=== PATIENT | male | born 1980 | race Two or more races ===

== ENCOUNTER 2020-08-14 20:57 | Emergency (ER) | payer MEDICAID ==
[~2020-08-14] VITALS: Ht 170.2 cm; Wt 87.1 kg
[2020-08-14] MEDS ORDERED: TETANUS-DIPTH-ACEL PERTUSSIS 0.5ML SYR Tdap IM ONE (22:45)
[2020-08-14] MEDS ORDERED: cefTRIAXone SOD 1,000 MG VL IM ONE (22:45)
[2020-08-14] MEDS ORDERED: LIDOCAINE 1% HCL (LOCAL ANESTH.) INJ 20ML MDV IJ ONE (23:15)
[2020-08-15 00:40] VITALS: BP 186/92
== END 2020-08-15 01:53 | disposition home or self-care (01) ==
LOC: ER 20:59
DX: S61.011A Laceration without foreign body of right thumb without damage to nail, initial encounter (principal); W26.8XXA Contact with other sharp object(s), not elsewhere classified, initial encounter; Y93.89 Activity, other specified; Y92.89 Other specified places as the place of occurrence of the external cause; Y99.8 Other external cause status
CPT/HCPCS: 29130; 73140; 90471; 90715; 96372; 99284; J0696; J2001

== ENCOUNTER 2025-05-18 21:27 | Inpatient (IN) | payer MEDICAID, OTHER ==
[~2025-05-18] VITALS: Ht 170.2 cm; Wt 86.3 kg
[~2025-05-18 21:27] MED LIST: AUG875T PO; CIPR-173 PO; METR-344 PO
--- NOTE | 2025-05-18 21:54 | ED.PDOC ---
History of Present Illness HPI Comments 44-year-old male who came to ER for GI bleeding. Patient does have history of hypertension and diverticulitis. Patient has not yet seen a GI specialist regarding this issue. For the past 2 days, patient has been having intermittent episodes of left lower quadrant abdominal pain and bright red rectal bleeding. Denies any nausea or vomiting. Denies any history of abdominal surgeries REVIEW OF SYSTEMS: General: No fever, no chills, or fatigue HEENT: No sore throat, no earache, no congestion, no neck pain. Cardiac: No chest pain. No palpitations. Lungs: No shortness of breath, no cough. GI: No nausea, no vomiting, no diarrhea, no constipation, (+) abdominal pain, (+) rectal bleeding : No dysuria, frequency, or urgency. No hematuria. Musculoskeletal: No joint pain , no joint swelling, no extremity edema. Skin: No rash, no itching. Neuro: No headache, no dizziness, no weakness EXAM: General: Awake, alert and oriented. No acute distress. Skin: Skin in warm, dry and intact. Appropriate color for ethnicity. HEENT: The head is normocephalic and atraumatic. Conjunctivae are clear without exudates or hemorrhage. Sclera is non-icteric. EOM are intact. No signs of nystagmus. Eyelids are normal in appearance without swelling or lesions. Oral mucosa is pink and moist Neck: The neck is supple with normal range of motion. No JVD. Cardiac: Heart rate and rhythm are normal. No murmurs, gallops, or rubs are auscultated. Respiratory: No signs of respiratory distress. Lung sounds are clear in all lobes bilaterally without rales, rhonchi, or wheezes. Abdominal: Abdomen is soft, + left lower quadrant tenderness without distention. Bowel sounds are present and normoactive in all four quadrants. Extremities: Upper and lower extremities are atraumatic in appearance without deformity or edema. Neurological: The patient is awake, alert and oriented to person, place, and time with normal speech. Speech is clear. There is no facial asymmetry. Psychiatric: Appropriate mood and affect. Good judgement and insight Chief Complaint: GI Bleed Time Seen by MD: 21:53 Reviewed Notes: Nurses Notes Allergies: Coded Allergies: NO KNOWN ALLERGIES (Unverified , 08/14/20) Home Meds Active Scripts Metronidazole (Flagyl) 500 Mg Tab, 1 TAB PO BID for 7 Days, #14 TAB Prov:TANVIR KUHN MD 04/22/24 Ciprofloxacin Hcl (Cipro) 500 Mg Tab, 500 MG PO BID for 7 Days, #14 TAB Prov:TANVIR KUHN MD 04/22/24 Amoxicillin & Pot Clavulanate (AUGMENTIN TABLET) 875 Mg Tb, 875 MG PO BID for 5 Days, #10 TAB Prov:CHRISTOPHER PATE MD 01/11/24 Mode of Arrival: Ambulatory Past Medical History PAST MEDICAL HISTORY: HTN Past Medical History (Other): Diverticulitis Surgical History: Denies all surgeries Family History Family History: Reviewed,noncontributory to illness Social History Smoker: Non-Smoker Alcohol: Denies ETOH Use Drugs: Denies Drug Use Lives In: Home Was a procedure done? Was a procedure done?: No Differential Dx Considerations may include: Anemia, GI bleed, diverticulitis, abdominal pain X-Ray, Labs, Meds, VS Vital Signs Date Time Temp Pulse Resp B/P (MAP) Pulse Ox O2 Delivery O2 Flow Rate FiO2 05/19/25 00:17 98.6 77 20 172/91 (118) 99 98.6 05/18/25 22:35 Room Air* 0 21 05/18/25 21:35 97.6 68 18 181/118 99 97.6 Lab Test 05/18/25 23:26 05/18/25 22:50 05/18/25 22:12 Range/Units Stool Occult Blood Negative Negative Stool Occult Blood Sample #3 Negative Urine Color Light-yellow Yellow Urine Clarity Clear Clear Urine pH 5.5 5.0-9.0 Urine Specific [place] 1.016 1.001-1.035 Urine Protein Negative Negative Urine Ketones Negative Negative Urine Blood Negative Negative /uL Urine Nitrite Negative Negative Urine Bilirubin Negative Negative Urine Urobilinogen Normal Negative mg/dL Urine Leukocyte Esterase Negative Negative /uL Urine RBC <1 0 - 3 /hpf Urine Microscopic WBC < 1 0-3 /HPF Urine Squamous Epithelial Cells Few <5 /hpf Urine Bacteria None seen None Seen /hpf Urine Mucus Few None Seen Urine Glucose Normal Normal mg/dL White Blood Count 7.9 4.4-10.8 10^3/uL Red Blood Count 5.05 4.5-5.90 10^6/uL Hemoglobin 15.0 13.5-17.5 g/dL Hematocrit 43.8 41.0-53.0 % Mean Corpuscular Volume 86.7 80.0-100.0 fL Mean Corpuscular Hemoglobin 29.7 28.0-32.0 pg Mean Corpuscular Hemoglobin Concent 34.3 32.0-36.0 g/dL Red Cell Distribution Width 13.0 11.8-14.3 % Platelet Count 251 140-450 10^3/uL Mean Platelet Volume 8.6 6.9-10.8 fL Neutrophils (%) (Auto) 53.9 37.0-80.0 % Lymphocytes (%) (Auto) 37.2 10.0-50.0 % Monocytes (%) (Auto) 5.3 0.0-12.0 % Eosinophils (%) (Auto) 3.0 0.0-7.0 % Basophils (%) (Auto) 0.6 0.0-2.0 % Neutrophils # (Auto) 4.2 1.6-8.6 10 ^3/uL Lymphocytes # (Auto) 2.9 0.4-5.4 10 ^3/uL Monocytes # (Auto) 0.4 0-1.3 10 ^3/uL Eosinophils # (Auto) 0.2 0-0.8 10 ^3/uL Basophils # (Auto) 0 0-0.2 10 ^3/uL Nucleated Red Blood Cells 0.1 % Sodium Level 141 136-145 mmol/L Potassium Level 4.1 3.5-5.1 mmol/L Chloride Level 104 98-107 mmol/L Carbon Dioxide Level 26 20-31 mmol/L Anion Gap 11 5-15 Blood Urea Nitrogen 13 9-23 mg/dL Creatinine 0.98 0.700-1.30 mg/dL Glomerular Filtration Rate Calc 96 >90 mL/min BUN/Creatinine Ratio 13.3 10.0-20.0 Serum Glucose 98 74-106 mg/dL Lactic Acid Level 0.8 0.4-2.0 mmol/L Calcium Level 9.3 8.7-10.4 mg/dL Total Bilirubin 0.9 0.2-1.0 mg/dL Aspartate Amino Transferase (AST) 30 13-40 U/L Alanine Aminotransferase (ALT) 57 H 7-40 U/L Alkaline Phosphatase 111 46-116 U/L Total Protein 7.8 5.7-8.2 g/dL Albumin 4.8 3.2-4.8 g/dL Current Medications Medications (Trade) Dose Ordered Sig/Grady Route Start Time Stop Time Status Last Admin Pantoprazole Sodium (Protonix) 40 mg ONCE ONCE IV 05/18/25 22:15 05/18/25 22:16 DC 05/18/25 22:34 Sodium Chloride 1,000 ml @ 1,000 mls/hr Q1H ONCE IV 05/19/25 00:15 05/19/25 01:14 DC 05/19/25 00:15 Sodium Chloride 1,000 ml @ 130 mls/hr Q7H42M ONCE IV 05/19/25 00:15 05/19/25 07:56 05/19/25 01:56 EXAM: CT CT AB PEL WITH IV CON ONLY History: Rectal bleeding COMPARISON: CT CT AB PEL WITH IV CON ONLY on DOS: 04/21/24, CT CT AB PEL WITH IV CON ONLY on DOS: 01/11/24 TECHNIQUE: Multidetector spiral CT of the abdomen and pelvis was performed from lung bases to pubic symphysis. Intravenous contrast was administered during this examination. Portal venous imaging was obtained. Axial, coronal and sagittal multiplanar reformats were performed by the technologist on a separate workstation. Radiation Dose : 1. Abdomen/Pelvis: CTDIvol 18.39mGy, DLP 1179.36 mGy*cm. CONTRAST: Type of contrast: Omnipaque 300 Contrast injected: 100 ml FINDINGS: Lung Bases: No acute or significant lung base finding. Normal heart size. No pleural or pericardial effusion. Liver: Hepatic steatosis. Gallbladder and Biliary Tree: Unremarkable Spleen: Unremarkable Pancreas: The pancreas is normal in appearance without focal lesions or abnormal enhancement. Adrenal Glands: Unremarkable Kidneys: No hydronephrosis. Bladder: Unremarkable Bowel: Focal area of short segmental wall thickening at the proximal to mid sigmoid colon. Few diverticula in this region. Equivocal surrounding inflammatory changes adjacent to one of the diverticula. Ascites: Absent Lymphadenopathy: No mesenteric, retroperitoneal or periportal lymphadenopathy. Abdominal Wall and Mesentery: Unremarkable. Vasculature: The visualized abdominal aorta is normal in size and caliber. Abdominal and pelvic vessels demonstrate normal enhancement. Pelvic Organs: Unremarkable Musculoskeletal: No aggressive focal bony lesions, acute fractures or dislocation. IMPRESSION: Focal area of colonic wall thickening at the mid to distal sigmoid colon which could be related to chronic diverticulosis +/ minus sign acute diverticulitis. Consider colonoscopy when the acute illness has subsided to exclude any underlying lesion. Radiation optimization: All CT scans at this facility use at least one of these dose optimization techniques: automated exposure control mA and/or kV adjustment per patient size (includes targeted exams where dose is matched to clinical indication) or iterative reconstruction. Time of 1ST Reevaluation: 21:50 Reevaluation 1ST: Unchanged Patient Education/Counseling: Need For Follow Up Family Education/Counseling: No Family Present SEPSIS Sepsis Screen Date sepsis recognized/suspect: May 18, 2025 Time Sepsis recognized/suspect: 2137 Recent Procedure: No On Antibiotic Therapy: No Respiratory Rate >20: No Heart Rate >90: No Temp<36 C (96.8 F) or >38.3 C: No SBP <90 or MAP <65 mmHG: No New Acute Mental Status Change: No Is the patient on CPAP, BIPAP,: No Physician Orders Ct Ab Pel With Iv Con Only (05/18/25 22:02) Notify Md If Abnormal Vs (05/19/25 00:04) Blood Pressure (05/19/25 ) Sodium Chloride 0.9% (05/19/25 00:15) Complete Blood Count (05/19/25 04:00) Comprehensive Metabolic Panel (05/19/25 04:00) * [facility] [employer] (05/19/25 02:20) Pantoprazole (Protonix) (05/19/25 10:00) Admit (05/19/25 02:20) Allergies (05/19/25 02:20) Code Status (05/19/25 02:20) Sodium Chloride Lock (Saline Lock Ns) (05/19/25 06:00) Oxygen Per Hour (05/19/25 02:20) Hydrocodone-Acet 5/325mg Tab ([place] 5/32 (05/19/25 02:30) Ondansetron Hcl (Zofran) (05/19/25 02:30) Docusate Sodium Capsule (Colace Capsule) (05/19/25 02:30) Complete Blood Count (05/20/25 04:00) Comprehensive Metabolic Panel (05/20/25 04:00) Condition: Serious (05/19/25 02:20) Acetaminophen Tablet (Tylenol Tablet) (05/19/25 02:30) Clear Liq Diet (05/19/25 Breakfast) Bedrest With Bathroom Privileg (05/19/25 02:20) Sequential Compression Device (05/19/25 ) Nitroglycerin Sublingual (Ntrostat Subli (05/19/25 02:30) Morphine Sulfate Injection (05/19/25 02:30) Stat Ekg For Chest Pain (05/19/25 02:20) Notify Md Of Changes From Base (05/19/25 02:20) Aerial Photograph Interpreter For 24 Hours (05/19/25 02:20) Emergency Dysrhythmia Protocol (05/19/25 02:20) Rhythm Strips Once Every Shift (05/19/25 02:20) Oxygen By Nasal Cannula (05/19/25 02:20) Vital Signs Date Time Temp Pulse Resp B/P (MAP) Pulse Ox O2 Delivery O2 Flow Rate FiO2 05/19/25 00:17 98.6 77 20 172/91 (118) 99 98.6 05/18/25 22:35 Room Air* 0 21 05/18/25 21:35 97.6 68 18 181/118 99 97.6 Laboratory Tests Test 05/18/25 22:12 Lactic Acid Level 0.8 mmol/L (0.4-2.0) White Blood Count 7.9 10^3/uL (4.4-10.8) Medications Medications Dose Ordered Sig/Grady Route Start Time Stop Time Status Last Admin Dose Admin Pantoprazole Sodium 40 mg ONCE ONCE IV 05/18/25 22:15 05/18/25 22:16 DC 05/18/25 22:34 Sodium Chloride 1,000 ml @ 130 mls/hr Q7H42M ONCE IV 05/19/25 00:15 05/19/25 07:56 05/19/25 01:56 Sodium Chloride 1,000 ml @ 1,000 mls/hr Q1H ONCE IV 05/19/25 00:15 05/19/25 01:14 DC 05/19/25 00:15 Departure 1 Departure Time of Disposition: 02:37 Impression: Primary Impression: Rectal bleeding Disposition: 09 ADMITTED INPATIENT Condition: Stable Comments [age] male with a history of diverticulosis presents with left lower quadrant pain, blood in his stool. Patient admitted to hospitalist service for further treatment, evaluation and monitoring. Critical Care Note Critical Care Time?: No Stability Stability form required: No Heart Score Heart Score: Heart Score Response (Comments) Value History N/A 0 EKG N/A 0 Age N/A 0 Risk Factors N/A 0 Troponin N/A 0 Total 0 I personally scribed for ANAND RM MD ([email or web address]) on 05/18/25 at 21:54. Electronically submitted by Albert Vee ([employer]). I personally scribed for ANAND RM MD ([email or web address]) on 05/19/25 at 00:40. E lectronically submitted by Albert Vee ([employer]). ANAND RM MD May 18, 2025 21:54
[2025-05-18 22:30] LABS: Hematocrit 43.8 % (41.0-53.0); Hemoglobin 15.0 g/dL (13.5-17.5); Mean Corpuscular Hemoglobin 29.7 pg (28.0-32.0); Mean Corpuscular Volume 86.7 fL (80.0-100.0); Nucleated Red Blood Cells % 0.1 %
[2025-05-18] MEDS: PANTOPRAZOLE 40 MG/10 ML VIAL INJ IV ONE (22:34)
[2025-05-18 22:38] LABS: Albumin 4.8 g/dL (3.2-4.8); Alkaline Phosphatase 111 U/L (46-116); Anion Gap 11 (5-15); BUN/Creatinine Ratio 13.3 (10.0-20.0); Blood Urea Nitrogen 13 mg/dL (9-23); Calcium 9.3 mg/dL (8.7-10.4); Carbon Dioxide 26 mmol/L (20-31); Chloride 104 mmol/L (98-107); Glucose 98 mg/dL (74-106); Potassium 4.1 mmol/L (3.5-5.1); Sodium 141 mmol/L (136-145); Total Protein 7.8 g/dL (5.7-8.2)
[2025-05-18 22:39] LABS: Bilirubin, Total 0.9 mg/dL (0.2-1.0)
[2025-05-18 22:49] LABS: Alanine Aminotransferase 57 U/L (7-40)
[2025-05-18 23:09] LABS: Urine Protein, UAD Negative (Negative)
[2025-05-18] MEDS: IOHEXOL 300 MG/ML 100ML BOTTLE IJ ONE (23:13)
--- NOTE | 2025-05-18 23:49 | DVH ---
EXAM: CT CT AB PEL WITH IV CON ONLY History: Rectal bleeding COMPARISON: CT CT AB PEL WITH IV CON ONLY on DOS: 04/21/24, CT CT AB PEL WITH IV CON ONLY on DOS: 01/11/24 TECHNIQUE: Multidetector spiral CT of the abdomen and pelvis was performed from lung bases to pubic symphysis. Intravenous contrast was administered during this examination. Portal venous imaging was obtained. Axial, coronal and sagittal multiplanar reformats were performed by the technologist on a separate workstation. Radiation Dose : 1. Abdomen/Pelvis: CTDIvol 18.39mGy, DLP 1179.36 mGy*cm. CONTRAST: Type of contrast: Omnipaque 300 Contrast injected: 100 ml FINDINGS: Lung Bases: No acute or significant lung base finding. Normal heart size. No pleural or pericardial effusion. Liver: Hepatic steatosis. Gallbladder and Biliary Tree: Unremarkable Spleen: Unremarkable Pancreas: The pancreas is normal in appearance without focal lesions or abnormal enhancement. Adrenal Glands: Unremarkable Kidneys: No hydronephrosis. Bladder: Unremarkable Bowel: Focal area of short segmental wall thickening at the proximal to mid sigmoid colon. Few diverticula in this region. Equivocal surrounding inflammatory changes adjacent to one of the diverticula. Ascites: Absent Lymphadenopathy: No mesenteric, retroperitoneal or periportal lymphadenopathy. Abdominal Wall and Mesentery: Unremarkable. Vasculature: The visualized abdominal aorta is normal in size and caliber. Abdominal and pelvic vessels demonstrate normal enhancement. Pelvic Organs: Unremarkable Musculoskeletal: No aggressive focal bony lesions, acute fractures or dislocation. IMPRESSION: Focal area of colonic wall thickening at the mid to distal sigmoid colon which could be related to chronic diverticulosis +/ minus sign acute diverticulitis. Consider colonoscopy when the acute illness has subsided to exclude any underlying lesion. Radiation optimization: All CT scans at this facility use at least one of these dose optimization techniques: automated exposure control mA and/or kV adjustment per patient size (includes targeted exams where dose is matched to clinical indication) or iterative reconstruction.
[2025-05-19] VITALS (7 sets, daily range): BP systolic 156–169; BP diastolic 101–106; PULSE 78–86; RESP 18–20; TEMP 36.7; O2SAT 82–99
[2025-05-19] MEDS: SODIUM CHLORIDE 0.9% 1,000 ML IV ONE ×2 (00:15→01:56)
--- NOTE | 2025-05-19 02:25 | DVHHP2 ---
History of Present Illness Reason for Visit: Lower GI bleed History of Present Illness The patient is a 44-year-old male with past medical history of hypertension and diverticulitis who presented to [facility] ED with complaint of GI bleeding. Patient reports that he has been experiencing blood in his stools for the past 2 days associated with intermittent episode of left lower quadrant abdominal pain, getting worse today that prompted this visit. Patient was seen and evaluated in the ED, laboratory data shows WBC 9.9, platelets 257, sodium 141, potassium 4.1, BUN 13, creatinine 0.98, GFR 96, glucose 98, calcium 9.3, AST 30, ALT 57, blood pressure 172/71 trending down to 149/94, heart rate 77, temperature 98.6 F, O2 saturation 99% on room air. Abdomen/pelvis CT revealing focal area of colonic wall thickening at the mid to distal sigmoid colon which could be related to chronic diverticulosis plus/minus signs of acute diverticulitis. Please see medication orders section in the computer. On my assessment, patient denies chest pain, no dizziness, headache, diaphoresis, sh ortness of breaths, no abdominal pain at this moment, nausea, vomiting, fever, no chills. Patient was admitted for further evaluation and medical management. Past Medical History HTN, Diverticulitis Past Surgical History Denies all surgeries Family History Reviewed, noncontributory to the management of this case. Past Social History The patient lives at home, denies smoking, alcohol or illicit drugs abuse. Review of Systems Constitutional: No: Fever, Chills, Sweats, Weakness, Malaise, Other Eyes: No: Pain, Vision change, Conjunctivae inflammation, Eyelid inflammation, Other, Redness ENT: No: Ear pain, Ear discharge, Nose pain, Nose discharge, Nose congestion, Mouth pain, Mouth swelling, Throat pain, Throat swelling, Other Respiratory: No: Cough, Dry, Shortness of breath, SOB with excertion, Wheezing, Hemoptysis, Pleuritic Pain, Sputum, Wheezing, Other Cardiovascular: No: Chest Pain, Palpitations, Orthopnea, Paroxysmal Noc. Dyspnea, Edema, Lt Headedness, Other Gastrointestinal: Melena; No: Nausea, Vomiting, Abdominal Pain, Diarrhea, Con stipation, Hematochezia, Other Genitourinary: No Dysuria, No Frequency, No Incontinence, No Hematuria, No Retention, No Other Musculoskeletal: No: other, neck pain, shoulder pain, arm pain, back pain, hand pain, leg pain, foot pain Skin: No: Rash, Lesions, Jaundice, Bruising, Other Neurological: No: Weakness, Numbness, Incoordination, Change in speech, Confusion, Seizures, Other Allergies: Coded Allergies: NO KNOWN ALLERGIES (Unverified , 08/14/20) Exam Vital Signs Vital Signs Date Time Temp Pulse Resp B/P (MAP) Pulse Ox O2 Delivery O2 Flow Rate FiO2 05/19/25 00:17 98.6 77 20 172/91 (118) 99 98.6 05/18/25 22:35 Room Air* 0 21 General Appearance: Alert, Oriented X3, Cooperative, No acute distress HEENT: Atraumatic, PERRLA, EOMI, Mucous membr. moist/pink Respiratory: Clear to auscultation, Normal air movement Cardiovascular: Regular rate, Normal S1, Normal S2, No murmurs Abdominal: Normal bowel sounds, Soft, No tenderness, No hepatospenomegaly, No masses Extremities: No clubbing, No cyanosis, No edema, Normal pulses, No tenderness/swelling Skin: No rashes, No breakdown, No significant lesion Neuro: Normal gait, Normal speech, Strength at 5/5 X4 ext, Normal tone, Sensation intact, Cranial nerves 3-12 NL, Reflexes 2+ Psych/Mental Status: Mental status NL, Mood NL Labs/Xrays Labs Test 05/18/25 23:26 05/18/25 22:50 05/18/25 22:12 Range/Units Stool Occult Blood Negative Negative Stool Occult Blood Sample #3 Negative Urine Color Light-yellow Yellow Urine Clarity Clear Clear Urine pH 5.5 5.0-9.0 Urine Specific [place] 1.016 1.001-1.035 Urine Protein Negative Negative Urine Ketones Negative Negative Urine Blood Negative Negative /uL Urine Nitrite Negative Negative Urine Bilirubin Negative Negative Urine Urobilinogen Normal Negative mg/dL Urine Leukocyte Esterase Negative Negative /uL Urine RBC <1 0 - 3 /hpf Urine Microscopic WBC < 1 0-3 /HPF Urine Squamous Epithelial Cells Few <5 /hpf Urine Bacteria None seen None Seen /hpf Urine Mucus Few None Seen Urine Glucose Normal Normal mg/dL White Blood Count 7.9 4.4-10.8 10^3/uL Red Blood Count 5.05 4.5-5.90 10^6/uL Hemoglobin 15.0 13.5-17.5 g/dL Hematocrit 43.8 41.0-53.0 % Mean Corpuscular Volume 86.7 80.0-100.0 fL Mean Corpuscular Hemoglobin 29.7 28.0-32.0 pg Mean Corpuscular Hemoglobin Concent 34.3 32.0-36.0 g/dL Red Cell Distribution Width 13.0 11.8-14.3 % Platelet Count 251 140-450 10^3/uL Mean Platelet Volume 8.6 6.9-10.8 fL Neutrophils (%) (Auto) 53.9 37.0-80.0 % Lymphocytes (%) (Auto) 37.2 10.0-50.0 % Monocytes (%) (Auto) 5.3 0.0-12.0 % Eosinophils (%) (Auto) 3.0 0.0-7.0 % Basophils (%) (Auto) 0.6 0.0-2.0 % Neutrophils # (Auto) 4.2 1.6-8.6 10 ^3/uL Lymphocytes # (Auto) 2.9 0.4-5.4 10 ^3/uL Monocytes # (Auto) 0.4 0-1.3 10 ^3/uL Eosinophils # (Auto) 0.2 0-0.8 10 ^3/uL Basophils # (Auto) 0 0-0.2 10 ^3/uL Nucleated Red Blood Cells 0.1 % Sodium Level 141 136-145 mmol/L Potassium Level 4.1 3.5-5.1 mmol/L Chloride Level 104 98-107 mmol/L Carbon Dioxide Level 26 20-31 mmol/L Anion Gap 11 5-15 Blood Urea Nitrogen 13 9-23 mg/dL Creatinine 0.98 0.700-1.30 mg/dL Glomerular Filtration Rate Calc 96 >90 mL/min BUN/Creatinine Ratio 13.3 10.0-20.0 Serum Glucose 98 74-106 mg/dL Lactic Acid Level 0.8 0.4-2.0 mmol/L Calcium Level 9.3 8.7-10.4 mg/dL Total Bilirubin 0.9 0.2-1.0 mg/dL Aspartate Amino Transferase (AST) 30 13-40 U/L Alanine Aminotransferase (ALT) 57 H 7-40 U/L Alkaline Phosphatase 111 46-116 U/L Total Protein 7.8 5.7-8.2 g/dL Albumin 4.8 3.2-4.8 g/dL PATIENT: VIET WADDELL ACCT: [id number] UNIT: [id number] : 1980 LOC: ER ROOM / BED: / AGE / SEX: 44 / M ADM STATUS: REG ER SERVICE 01 ORDERING PHYSICIAN: ANAND RM MD PROCEDURE(s): ABPLIV - CT AB PEL WITH IV CON ONLY REASON: Rectal bleeding ORDER NUMBER(s): [id number], ACCESSION NUMBER(s): [id number] EXAM: CT CT AB PEL WITH IV CON ONLY History: Rectal bleeding COMPARISON: CT CT AB PEL WITH IV CON ONLY on DOS: 04/21/24, CT CT AB PEL WITH IV CON ONLY on DOS: 01/11/24 TECHNIQUE: Multidetector spiral CT of the abdomen and pelvis was performed from lung bases to pubic symphysis. Intravenous contrast was administered during this examination. Portal venous imaging was obtained. Axial, coronal and sagittal multiplanar reformats were performed by the technologist on a separate work station. Radiation Dose: 1. Abdomen/Pelvis: CTDIvol 18.39mGy, DLP 1179.36 mGy*cm. CONTRAST: Type of contrast: Omnipaque 300 Contrast injected: 100 ml FINDINGS: Lung Bases: No acute or significant lung base finding. Normal heart size. No pleural or pericardial effusion. Liver: Hepatic steatosis. Gallbladder and Biliary Tree: Unremarkable Spleen: Unremarkable Pancreas: The pancreas is normal in appearance without focal lesions or abnormal enhancement. Adrenal Glands: Unremarkable Kidneys: No hydronephrosis. Bladder: Unremarkable Bowel: Focal area of short segmental wall thickening at the proximal to mid sigmoid colon. Few diverticula in this region. Equivocal surrounding inflammatory changes adjacent to one of the diverticula. Ascites: Absent Lymphadenopathy: No mesenteric, retroperitoneal or periportal lymphadenopathy. Abdominal Wall and Mesentery: Unremarkable. Vasculature: The visualized abdominal aorta is normal in size and caliber. Abdominal and pelvic vessels demonstrate normal enhancement. Pelvic Organs: Unremarkable Musculoskeletal: No aggressive focal bony lesions, acute fractures or dislocation. IMPRESSION: Focal area of colonic wall thickening at the mid to distal sigmoid colon which could be related to chronic diverticulosis +/minus sign acute diverticulitis. Consider colonoscopy when the acute illness has subsided to exclude any underlying lesion. SEPSIS Sepsis Screen Date sepsis recognized/suspect: May 18, 2025 Time Sepsis recognized/suspect: 2137 Recent Procedure: No On Antibiotic Therapy: No Respiratory Rate >20: No Heart Rate >90: No Temp<36 C (96.8 F) or >38.3 C: No SBP <90 or MAP <65 mmHG: No New Acute Mental Status Change: No Is the patient on CPAP, BIPAP,: No Physician Orders Ct Ab Pel With Iv Con Only (05/18/25 22:02) Notify Md If Abnormal Vs (05/19/25 00:04) Blood Pressure (05/19/25 ) Sodium Chloride 0.9% (05/19/25 00:15) Complete Blood Count (05/19/25 04:00) Comprehensive Metabolic Panel (05/19/25 04:00) * [facility] Chair (05/19/25 02:20) Pantoprazole (Protonix) (05/19/25 10:00) Admit (05/19/25 02:20) Allergies (05/19/25 02:20) Code Status (05/19/25 02:20) Sodium Chloride Lock (Saline Lock Ns) (05/19/25 06:00) Oxygen Per Hour (05/19/25 02:20) Hydrocodone-Acet 5/325mg Tab ([place] 5/32 (05/19/25 02:30) Ondansetron Hcl (Zofran) (05/19/25 02:30) Docusate Sodium Capsule (Colace Capsule) (05/19/25 02:30) Complete Blood Count (05/20/25 04:00) Comprehensive Metabolic Panel (05/20/25 04:00) Condition: Serious (05/19/25 02:20) Acetaminophen Tablet (Tylenol Tablet) (05/19/25 02:30) Clear Liq Diet (05/19/25 Breakfast) Bedrest With Bathroom Privileg (05/19/25 02:20) Vital Signs Date Time Temp Pulse Resp B/P (MAP) Pulse Ox O2 Delivery O2 Flow Rate FiO2 05/19/25 00:17 98.6 77 20 172/91 (118) 99 98.6 05/18/25 22:35 Room Air* 0 21 05/18/25 21:35 97.6 68 18 181/118 99 97.6 Laboratory Tests Test 05/18/25 22:12 Lactic Acid Level 0.8 mmol/L (0.4-2.0) White Blood Count 7.9 10^3/uL (4.4-10.8) Medications Medications Dose Ordered Sig/Grady Route Start Time Stop Time Status Last Admin Dose Admin Pantoprazole Sodium 40 mg ONCE ONCE IV 05/18/25 22:15 05/18/25 22:16 DC 05/18/25 22:34 40 MG Sodium Chloride 1,000 ml @ 130 mls/hr Q7H42M ONCE IV 05/19/25 00:15 05/19/25 07:56 05/19/25 01:56 130 MLS/HR Sodium Chloride 1,000 ml @ 1,000 mls/hr Q1H ONCE IV 05/19/25 00:15 05/19/25 01:14 DC 05/19/25 00:15 1,000 MLS/HR Assessment/Plan Assessment/Plan Lower GI bleed Hypertensive urgency Plan 1. Admit to telemetry unit 2. Breathing treatment 3. Pain control management 4. Management of fluids and electrolytes 5. Consultation for GI possible colonoscopy 6. Diagnostic tests abdomen/pelvis CT 7. DVT prophylaxis -on SCDs 8. Repeat labs CBC, CMP in a.m. 9. Continue with current medical management 10. Treatment plan discussed with patient and RN. Patient verbalized understanding. Plan discussed with: Patient, Other (RN) My Orders Orders - FLACO HUITRON DNP Procedure Category Date Status Time Complete Blood Count LAB 05/19/25 Verified 04:00 Comprehensive LAB 05/19/25 Verified Metabolic Panel 04:00 * [facility] Chair CONS 05/19/25 Verified 02:20 Pantoprazole PHA 05/19/25 Verified (Protonix) 10:00 Admit ADMIT 05/19/25 Verified 02:20 Allergies VILMA 05/19/25 Verified 02:20 Code Status CODE 05/19/25 Verified 02:20 Sodium Chloride Lock PHA 05/19/25 Verified (Saline Lock Ns) 06:00 Oxygen Per Hour RT 05/19/25 Verified 02:20 Hydrocodone-Acet PHA 05/19/25 Verified 5/325mg Tab ([place] 02:30 Ondansetron Hcl PHA 05/19/25 Verified (Zofran) 02:30 Docusate Sodium PHA 05/19/25 Verified Capsule (Colace 02:30 Complete Blood Count LAB 05/20/25 Verified 04:00 Comprehensive LAB 05/20/25 Verified Metabolic Panel 04:00 Condition: Serious VILMA 05/19/25 Verified 02:20 Acetaminophen Tablet PHA 05/19/25 Verified (Tylenol Tablet) 02:30 Clear Liq Diet DIET 05/19/25 Verified Breakfast Bedrest With Bathroom VILMA 05/19/25 Verified Privileg 02:20 Problem List: (1) Lower GI bleed (2) Hypertensive urgency Date of Service: May 19, 2025 Billing Provider: FLACO HUITRON DNP Common Visit Codes: [id number] INP/OBS CARE (HIGH) FLACO HUITRON DNP May 19, 2025 02:25
[2025-05-19] MEDS ORDERED: DOCUSATE SOD 100 MG CAP PO PRN (02:30)
[2025-05-19] MEDS ORDERED: NITROGLYCERIN 0.4 MG SL TAB SL PRN (02:30)
[2025-05-19] MEDS ORDERED: HYDROcodone-ACET 5/325MG TAB PO PRN (02:30)
[2025-05-19] MEDS ORDERED: ONDANSETRON HCL 4 MG/2 ML VIAL IV PRN (02:30)
[2025-05-19] MEDS ORDERED: ACETAMINOPHEN 325 MG TAB PO PRN (02:30)
[2025-05-19] MEDS ORDERED: MORPHINE SULFATE INJ 2 MG/ml SYRG IV PRN (02:30)
[2025-05-19] MEDS ORDERED: ENAL1TAB48 PO (04:42)
[2025-05-19] MEDS: SODIUM CHLOR 0.9% PF (SALINE LOCK) 10ML VIAL/SYR IV SCH (05:02)
[2025-05-19] MEDS: ENALAPRIL MALEATE 10 MG TAB PO SCH (05:51)
[2025-05-19 07:37] LABS: Hematocrit 43.4 % (41.0-53.0); Hemoglobin 14.7 g/dL (13.5-17.5); Mean Corpuscular Hemoglobin 29.2 pg (28.0-32.0); Mean Corpuscular Volume 86.3 fL (80.0-100.0); Nucleated Red Blood Cells % 0.1 %
[2025-05-19 07:53] LABS: Alkaline Phosphatase 100 U/L (46-116); Anion Gap 10 (5-15); BUN/Creatinine Ratio 10.1 (10.0-20.0); Blood Urea Nitrogen 9 mg/dL (9-23); Calcium 9.0 mg/dL (8.7-10.4); Carbon Dioxide 25 mmol/L (20-31); Glucose 99 mg/dL (74-106); Potassium 4.0 mmol/L (3.5-5.1); Sodium 143 mmol/L (136-145); Total Protein 7.0 g/dL (5.7-8.2)
[2025-05-19 07:54] LABS: Albumin 4.3 g/dL (3.2-4.8)
[2025-05-19 07:57] LABS: Alanine Aminotransferase 52 U/L (7-40); Bilirubin, Total 1.4 mg/dL (0.2-1.0); Chloride 108 mmol/L (98-107)
[2025-05-19 09:18] LABS: INR 1.01 (0.9-1.15); Partial Thromboplastin Time 28.1 SEC (24.5-34.5); Prothrombin Time 10.7 sec (9.3-11.8)
[2025-05-19 09:43] LABS: Magnesium 2.2 mg/dL (1.6-2.6)
[2025-05-19] MEDS: PANTOPRAZOLE 40 MG/10 ML VIAL INJ IV SCH (10:04)
[2025-05-19 10:21] LABS: Amphetamine Screen, Urine Neg (NEGATIVE); Barbiturate Scree,Urine Neg (NEGATIVE); Benzodiazephine Screen, Urine Neg (NEGATIVE); Cannabinoid Screen, Urine Neg (NEGATIVE); Cocaine Screen, Urine Neg (NEGATIVE); Opiate Scree,Urine Neg (NEGATIVE); Phencyclidine Screen, Urine Neg (NEGATIVE)
--- NOTE | 2025-05-19 10:27 | DVHPNRES ---
Progress Note Date Seen: May 19, 2025 Resident Creating Document: MOLLY FIGUEROA RESIDENT Has the PT tested + for MRSA If YES, has PT been informed?: No Medical Necessity Reason Pt with a Central, PICC or Fol: No Subjective Review of Systems The patient is a 44-year-old male with past medical history of hypertension and diverticulitis who presented to [facility] ED with complaint of GI bleeding. Patient reports that he has been experiencing blood in his stools for the past 2 days associated with intermittent episode of left lower quadrant abdominal pain, getting worse today that prompted this visit. Patient was seen and evaluated in the ED, laboratory data shows WBC 9.9, platelets 257, sodium 141, potassium 4.1, BUN 13, creatinine 0.98, GFR 96, glucose 98, calcium 9.3, AST 30, ALT 57, blood pressure 172/71 trending down to 149/94, heart rate 77, temperature 98.6 F, O2 saturation 99% on room air. Abdomen/pelvis CT revealing focal area of colonic wall thickening at the mid to distal sigmoid colon which could be related to chronic diverticulosis plus/minus signs of acute diverticulitis. Please see medication orders section in the computer. On my assessment, patient denies chest pain, no dizziness, headache, diaphoresis, shortness of breaths, no abdominal pain at this moment, nausea, vomiting, fever, no chills. Patient was admitted for further evaluation and medical management. Past Medical History HTN, Diverticulitis Past Surgical History Denies all surgeries Family History Reviewed, noncontributory to the management of this case. Past Social History The patient lives at home, denies smoking, alcohol or illicit drugs abuse. Constitutional: No: Fever, Chills, Sweats, Weakness, Malaise, Other Eyes: No: Pain, Vision change, Conjunctivae inflammation, Eyelid inflammation, Other, Redness ENT: No: Ear pain, Ear discharge, Nose pain, Nose discharge, Nose congestion, Mouth pain, Mouth swelling, Throat pain, Throat swelling, Other Respiratory: No: Cough, Dry, Shortness of breath, SOB with excertion, Wheezing, Hemoptysis, Pleuritic Pain, Sputum, Wheezing, Other Cardiovascular: No: Chest Pain, Palpitations, Orthopnea, Paroxysmal Noc. Dyspnea, Edema, Lt Headedness, Other Gastrointestinal: Melena; No: Nausea, Vomiting, Abdominal Pain, Diarrhea, Constipation, Hematochezia, Other Genitourinary: No Dysuria, No Frequency, No Incontinence, No Hematuria, No Retention, No Other Musculoskeletal: No: other, neck pain, shoulder pain, arm pain, back pain, hand pain, leg pain, foot pain Skin: No: Rash, Lesions, Jaundice, Bruising, Other Neurological: No: Weakness, Numbness, Incoordination, Change in speech, Confusion, Seizures, Other Allergies: Coded Allergies: NO KNOWN ALLERGIES (Unverified , 08/14/20) Objective vital signs Vital Sign Date Time Temp Pulse Resp B/P (MAP) Pulse Ox O2 Delivery O2 Flow Rate FiO2 05/19/25 09:09 97.9 86 20 166/101 (122) 97 97.9 05/19/25 08:00 Room Air* 0 21 Total Intake and Output 05/18/25 05/18/25 05/19/25 15:00 23:00 07:00 Intake Total 410 ml Balance 410 ml medications Current Medications Medications Dose Ordered Sig/Grady Route Start Time Stop Time Status Last Admin Dose Admin Pantoprazole Sodium 40 mg DAILY IV 05/19/25 10:00 05/19/25 10:04 40 MG Sodium Chloride 10 ml Q8HR IV 05/19/25 06:00 05/19/25 05:02 10 ML Acetaminophen/ Hydrocodone Bitart 1 tab Q4HP PRN PO 05/19/25 02:30 Ondansetron HCl 4 mg Q4HP PRN IV 05/19/25 02:30 Docusate Sodium 100 mg BIDPRN PRN PO 05/19/25 02:30 Acetaminophen 650 mg Q6HP PRN PO 05/19/25 02:30 Nitroglycerin 0.4 mg Q5MINP PRN SL 05/19/25 02:30 Morphine Sulfate 2 mg Q30M PRN IV 05/19/25 02:30 Enalapril Maleate 20 mg Q12HR PO 05/19/25 05:45 05/19/25 05:51 20 MG Examination General Appearance: Alert, Oriented X3, Cooperative, No acute distress HEENT: Atraumatic, PERRLA, EOMI, Mucous membr. moist/pink Respiratory: Clear to auscultation, Normal air movement Cardiovascular: Regular rate, Normal S1, Normal S2, No murmurs Abdominal: Normal bowel sounds, Soft, No tenderness, No hepatospenomegaly, No masses Extremities: No clubbing, No cyanosis, No edema, Normal pulses, No tenderness/swelling Skin: No rashes, No breakdown, No significant lesion Neuro: Normal gait, Normal speech, Strength at 5/5 X4 ext, Normal tone, Sensation intact, Cranial nerves 3-12 NL, Reflexes 2+ Psych/Mental Status: Mental status NL, Mood NL laboratory and microbiology Laboratory Tests 05/19/25 07:25 Test 05/19/25 07:25 Range/Units Serum Glucose 99 74-106 mg/dL Problem List/Assessment/Plan Problem List/Assessment/Plan Lower GI bleed Hypertensive urgency Plan 1. Admit to telemetry unit 2. Breathing treatment 3. Pain control management 4. Management of fluids and electrolytes 5. Consultation for GI possible colonoscopy 6. Diagnostic tests abdomen/pelvis CT 7. DVT prophylaxis -on SCDs 8. Repeat labs CBC, CMP in a.m. 9. Continue with current medical management 10. Treatment plan discussed with patient and RN. Patient verbalized understanding. Plan discussed with: Patient, Other (RN) Plan discussed with: Patient My Orders My Orders Orders - MOLLY FIGUEROA RESIDENT Procedure Category Date Status Time Discontinue Tele VILMA 05/19/25 In Process 09:57 Transfer Orders XFER 05/19/25 Transmitted 09:57 Visit Coding STANDARD RES Billing Provider: CHRISTA MCGILL MD Date of Service if different f: May 19, 2025 Common Visit Codes: [id number] INP/OBS CARE(HIGH) MOLLY FIGUEROA RESIDENT May 19, 2025 10:27
--- NOTE | 2025-05-19 12:06 | DVHINCON2 ---
GI Consult Consult Note GI consult note Date of Consultation: 05/19/2025 Chief Complaint: GI bleed Referring Physician: Kelsey HICKMAN H&P: 44-year-old male with past medical history of hypertension and diverticulitis admitted with GI bleeding. Patient admits to small amount of red blood in toilet bowl for two days, none today. Patient also complaining of left lower quadrant pain which is mild per patient. No nausea or vomiting. Denies fevers or chills. Last bowel movement was yesterday. No colonoscopy in past. Patient was hospitalized with diverticulitis about one year ago Past Medical History: HTN, diverticulitis Past Surgical History: Denies Social History: NO smoking, drinking ETOH and use of illegal drugs. Family History: Noncontributory Review of Systems: Constitutional: no fever, chill, weight loss HEENT: no eye pain, no hearing loss, no oral lesion, no scleral icterus Heart: no chest pain, no chest pressure Lung: no cough, no dyspnea with exertion Abdomen: see HPI Physical exam: General: NAD, AAOX3 Chest: lung rene clear to auscultation Heart: RRR, no murmur Abdomen: non-distended, mild LLQ tenderness to palpation, +BS Labs: Labs Test 05/19/25 09:50 05/19/25 07:25 05/18/25 23:26 05/18/25 22:50 Range/Units Urine Opiates Screen Neg NEGATIVE Urine Fentanyl Screen Neg NEGATIVE Urine Barbiturates Screen Neg NEGATIVE Urine Phencyclidine Screen Neg NEGATIVE Urine Amphetamines Screen Neg NEGATIVE Urine Benzodiazepines Screen Neg NEGATIVE Urine Cocaine Screen Neg NEGATIVE Urine Cannabinoids Screen Neg NEGATIVE White Blood Count 5.1 # 4.4-10.8 10^3/uL Red Blood Count 5.03 4.5-5.90 10^6/uL Hemoglobin 14.7 13.5-17.5 g/dL Hematocrit 43.4 41.0-53.0 % Mean Corpuscular Volume 86.3 80.0-100.0 fL Mean Corpuscular Hemoglobin 29.2 28.0-32.0 pg Mean Corpuscular Hemoglobin Concent 33.8 32.0-36.0 g/dL Red Cell Distribution Width 13.1 11.8-14.3 % Platelet Count 213 140-450 10^3/uL Mean Platelet Volume 8.3 6.9-10.8 fL Neutrophils (%) (Auto) 55.5 37.0-80.0 % Lymphocytes (%) (Auto) 35.8 10.0-50.0 % Monocytes (%) (Auto) 5.6 0.0-12.0 % Eosinophils (%) (Auto) 2.5 0.0-7.0 % Basophils (%) (Auto) 0.6 0.0-2.0 % Neutrophils # (Auto) 2.8 1.6-8.6 10 ^3/uL Lymphocytes # (Auto) 1.8 0.4-5.4 10 ^3/uL Monocytes # (Auto) 0.3 0-1.3 10 ^3/uL Eosinophils # (Auto) 0.1 0-0.8 10 ^3/uL Basophils # (Auto) 0 0-0.2 10 ^3/uL Nucleated Red Blood Cells 0.1 % Erythrocyte Sedimentation Rate 5 0-20 mm/hr Prothrombin Time 10.7 9.3-11.8 sec Prothrombin Time INR 1.01 0.9-1.15 Activated Partial Thromboplast Time 28.1 24.5-34.5 SEC Sodium Level 143 136-145 mmol/L Potassium Level 4.0 3.5-5.1 mmol/L Chloride Level 108 H 98-107 mmol/L Carbon Dioxide Level 25 20-31 mmol/L Anion Gap 10 5-15 Blood Urea Nitrogen 9 9-23 mg/dL Creatinine 0.89 0.700-1.30 mg/dL Glomerular Filtration Rate Calc 107 >90 mL/min BUN/Creatinine Ratio 10.1 10.0-20.0 Serum Glucose 99 74-106 mg/dL Hemoglobin A1c 5.9 H <5.7 % A1C Calcium Level 9.0 8.7-10.4 mg/dL Magnesium Level 2.2 1.6-2.6 mg/dL Total Bilirubin 1.4 H 0.2-1.0 mg/dL Aspartate Amino Transferase (AST) 28 13-40 U/L Alanine Aminotransferase (ALT) 52 H 7-40 U/L Alkaline Phosphatase 100 46-116 U/L C-Reactive Protein High Sensitivity 0.21 <1.0 mg/dL Total Protein 7.0 5.7-8.2 g/dL Albumin 4.3 3.2-4.8 g/dL Vitamin D 25-Hydroxy 25.3 L 30.0-100 ng/mL Thyroid Stimulating Hormone (TSH) 1.50 0.55-4.78 uIU/mL Stool Occult Blood Negative Negative Stool Occult Blood Sample #3 Negative Urine Color Light-yellow Yellow Urine Clarity Clear Clear Urine pH 5.5 5.0-9.0 Urine Specific [place] 1.016 1.001-1.035 Urine Protein Negative Negative Urine Ketones Negative Negative Urine Blood Negative Negative /uL Urine Nitrite Negative Negative Urine Bilirubin Negative Negative Urine Urobilinogen Normal Negative mg/dL Urine Leukocyte Esterase Negative Negative /uL Urine RBC <1 0 - 3 /hpf Urine Microscopic WBC < 1 0-3 /HPF Urine Squamous Epithelial Cells Few <5 /hpf Urine Bacteria None seen None Seen /hpf Urine Mucus Few None Seen Urine Glucose Normal Normal mg/dL Test 05/18/25 22:12 Range/Units Lactic Acid Level 0.8 0.4-2.0 mmol/L Imaging: CT abdomen pelvis IMPRESSION: Focal area of colonic wall thickening at the mid to distal sigmoid colon which could be related to chronic diverticulosis +/ minus sign acute diverticulitis. Consider colonoscopy when the acute illness has subsided to exclude any underlying lesion. Assessment: Abdominal pain Possible acute diverticulitis Plan: Discussed with Dr. Mahin Spence and Debbie Gallbladder ultrasound for elevated total bilirubin Monitor labs in a.m. Outpatient colonoscopy recommended Thank you for this consult Date of Service: May 19, 2025 Billing Provider: MARIA DE JESUS VAUGHN Common Visit Codes: CONSULT ONLY Consultation Codes: [id number] CONSULT <60MIN MARIA DE JESUS VAUGHN May 19, 2025 12:06
--- NOTE | 2025-05-19 13:43 | DVH ---
INDICATION: elevated t bili TECHNIQUE: Multiple real-time sonographic images of the abdomen were obtained. COMPARISON: None FINDINGS: Parenchymal changes consistent with steatosis The liver measures 16.5 cm. No intrahepatic biliary ductal dilatation is noted. The gallbladder wall measures 0.16 cm and is unremarkable. No gallstones or sludge is seen. The common duct not visible No pericholecystic fluid is noted. The right kidney measures 11.7 cm. No hydronephrosis. The pancreas is not well visualized due to obscuration from bowel gas. The visualized portions of the IVC and aorta are grossly unremarkable. IMPRESSION: 1. Liver measures 16.5 cm in length with changes suggesting steatosis. 2. Gallbladder wall measures 0.16 cm 3. Negative sonographic Ogden's sign 4. Right kidney measures 11.7 cm in length with no nephrolithiasis or hydronephrosis
[2025-05-19] MEDS ORDERED: DOCU-265 PO (14:44)
[2025-05-19] MEDS ORDERED: AUG875T PO (14:44)
--- NOTE | 2025-05-19 14:50 | DVHDSRES ---
Discharge Summary Date of Admission Resident Creating Document: MOLLY FIGUEROA RESIDENT May 19, 2025 at 05:51 Date of Discharge: May 19, 2025 Admitting Diagnosis Acute Lower GI bleeding possible due to hemorroids Chronic Diverticulosis, possible acute diverticulitis Chronic hemorroids Hypertensive Urgency Chronic constipation Obesity BMI 29.8 Wounds: No wounds on admission Labs/Diagnostic Data: Laboratory Results Test 05/19/25 09:50 05/19/25 07:25 05/18/25 23:26 05/18/25 22:50 Urine Opiates Screen Neg (NEGATIVE) Urine Fentanyl Screen Neg (NEGATIVE) Urine Barbiturates Screen Neg (NEGATIVE) Urine Phencyclidine Screen Neg (NEGATIVE) Urine Amphetamines Screen Neg (NEGATIVE) Urine Benzodiazepines Screen Neg (NEGATIVE) Urine Cocaine Screen Neg (NEGATIVE) Urine Cannabinoids Screen Neg (NEGATIVE) White Blood Count 5.1 10^3/uL (4.4-10.8) Red Blood Count 5.03 10^6/uL (4.5-5.90) Hemoglobin 14.7 g/dL (13.5-17.5) Hematocrit 43.4 % (41.0-53.0) Mean Corpuscular Volume 86.3 fL (80.0-100.0) Mean Corpuscular Hemoglobin 29.2 pg (28.0-32.0) Mean Corpuscular Hemoglobin Concent 33.8 g/dL (32.0-36.0) Red Cell Distribution Width 13.1 % (11.8-14.3) Platelet Count 213 10^3/uL (140-450) Mean Platelet Volume 8.3 fL (6.9-10.8) Neutrophils (%) (Auto) 55.5 % (37.0-80.0) Lymphocytes (%) (Auto) 35.8 % (10.0-50.0) Monocytes (%) (Auto) 5.6 % (0.0-12.0) Eosinophils (%) (Auto) 2.5 % (0.0-7.0) Basophils (%) (Auto) 0.6 % (0.0-2.0) Neutrophils # (Auto) 2.8 10 ^3/uL (1.6-8.6) Lymphocytes # (Auto) 1.8 10 ^3/uL (0.4-5.4) Monocytes # (Auto) 0.3 10 ^3/uL (0-1.3) Eosinophils # (Auto) 0.1 10 ^3/uL (0-0.8) Basophils # (Auto) 0 10 ^3/uL (0-0.2) Nucleated Red Blood Cells 0.1 % Erythrocyte Sedimentation Rate 5 mm/hr (0-20) Prothrombin Time 10.7 sec (9.3-11.8) Prothrombin Time INR 1.01 (0.9-1.15) Activated Partial Thromboplast Time 28.1 SEC (24.5-34.5) Sodium Level 143 mmol/L (136-145) Potassium Level 4.0 mmol/L (3.5-5.1) Chloride Level 108 mmol/L (98-107) Carbon Dioxide Level 25 mmol/L (20-31) Anion Gap 10 (5-15) Blood Urea Nitrogen 9 mg/dL (9-23) Creatinine 0.89 mg/dL (0.700-1.30) Glomerular Filtration Rate Calc 107 mL/min (>90) BUN/Creatinine Ratio 10.1 (10.0-20.0) Serum Glucose 99 mg/dL (74-106) Hemoglobin A1c 5.9 % A1C (<5.7) Calcium Level 9.0 mg/dL (8.7-10.4) Magnesium Level 2.2 mg/dL (1.6-2.6) Total Bilirubin 1.4 mg/dL (0.2-1.0) Aspartate Amino Transferase (AST) 28 U/L (13-40) Alanine Aminotransferase (ALT) 52 U/L (7-40) Alkaline Phosphatase 100 U/L (46-116) C-Reactive Protein High Sensitivity 0.21 mg/dL (<1.0) Total Protein 7.0 g/dL (5.7-8.2) Albumin 4.3 g/dL (3.2-4.8) Vitamin D 25-Hydroxy 25.3 ng/mL (30.0-100) Thyroid Stimulating Hormone (TSH) 1.50 uIU/mL (0.55-4.78) Stool Occult Blood Negative (Negative) Stool Occult Blood Sample #3 (Negative) Urine Color Light-yellow (Yellow) Urine Clarity Clear (Clear) Urine pH 5.5 (5.0-9.0) Urine Specific [place] 1.016 (1.001-1.035) Urine Protein Negative (Negative) Urine Ketones Negative (Negative) Urine Blood Negative /uL (Negative) Urine Nitrite Negative (Negative) Urine Bilirubin Negative (Negative) Urine Urobilinogen Normal mg/dL (Negative) Urine Leukocyte Esterase Negative /uL (Negative) Urine RBC <1 /hpf (0 - 3) Urine Microscopic WBC < 1 /HPF (0-3) Urine Squamous Epithelial Cells Few /hpf (<5) Urine Bacteria None seen /hpf (None Seen) Urine Mucus Few (None Seen) Urine Glucose Normal mg/dL (Normal) Test 05/18/25 22:12 Lactic Acid Level 0.8 mmol/L (0.4-2.0) Other Laboratory Tests 05/19/25 07:25 Brief Hx & Hospital Course: Neil Motta is a 44-year-old male, with past medical history of hypertension and diverticular disease. The patient presented to [facility] ED with the complaint of 2 days of noticing bright red blood in his stools associated with intermittent episode of left lower quadrant abdominal pain 7/10, colicky like, with no aggravating or alleviating factors. The patient report worsen of symptoms, this prompted his visit to the ED. Patient was seen and evaluated in the ED, laboratory data shows WBC 9.9, platelets 257, sodium 141, potassium 4.1, BUN 13, creatinine 0.98, GFR 96, glucose 98, calcium 9.3, AST 30, ALT 57, blood pressure 172/71 trending down to 149/94, heart rate 77, temperature 98.6 F, O2 saturation 99% on room air. Abdomen/pelvis CT revealing focal area of colonic wall thickening at the mid to distal sigmoid colon which could be related to chronic diverticulosis plus/minus signs of acute diverticulitis.The patient denies chest pain, no dizziness, headache, diaphoresis, shortness of breaths, nausea, vomiting, fever, no chills. Patient was admitted for further evaluation and medical management. Past Medical History HTN, Diverticulitis Past Surgical History Denies all surgeries Family History Reviewed, noncontributory to the management of this case. Past Social History The patient lives at home, denies smoking, alcohol or illicit drugs abuse. Hospital course: On 05/19/25, the patient was examined and evaluated at bedside, VS, labs and chart was reviewed. The occult blood test was negative. Hemoglobin is 14.7. Inthe rectal exam there was no active bleeding. GI is on board, they recommended colonoscopy as an out patient. Due to clinical improvement the patient will be discharge home and will follow up with d/c clinic, PCP and GI Dr. Stockton in 1 week. ROS: Constitutional: No: Fever, Chills, Sweats, Weakness, Malaise, Other Eyes: No: Pain, Vision change, Conjunctivae inflammation, Eyelid inflammation, Other, Redness ENT: No: Ear pain, Ear discharge, Nose pain, Nose discharge, Nose congestion, Mouth pain, Mouth swelling, Throat pain, Throat swelling, Other Respiratory: No: Cough, Dry, Shortness of breath, SOB with excertion, Wheezing, Hemoptysis, Pleuritic Pain, Sputum, Wheezing, Other Cardiovascular: No: Chest Pain, Palpitations, Orthopnea, Paroxysmal Noc. Dyspnea, Edema, Lt Headedness, Other Gastrointestinal: Melena; No: Nausea, Vomiting, Abdominal Pain, Diarrhea, Constipation, Hematochezia, Other Genitourinary: No Dysuria, No Frequency, No Incontinence, No Hematuria, No Retention, No Other Musculoskeletal: No: other, neck pain, shoulder pain, arm pain, back pain, hand pain, leg pain, foot pain Skin: No: Rash, Lesions, Jaundice, Bruising, Other Neurological: No: Weakness, Numbness, Incoordination, Change in speech, Confusion, Seizures, Other Allergies: Physical Exam General Appearance: Alert, Oriented X3, Cooperative, No acute distress HEENT: Atraumatic, PERRLA, EOMI, Mucous membr. moist/pink Respiratory: Clear to auscultation, Normal air movement Cardiovascular: Regular rate, Normal S1, Normal S2, No murmurs Abdominal: Normal bowel sounds, Soft, No tenderness, No hepatospenomegaly, No masses Extremities: No clubbing, No cyanosis, No edema, Normal pulses, No tenderness/swelling Skin: No rashes, No breakdown, No significant lesion Neuro: Normal gait, Normal speech, Strength at 5/5 X4 ext, Normal tone, Sensation intact, Cranial nerves 3-12 NL, Reflexes 2+ Psych/Mental Status: Mental status NL, Mood NL Consults/Reason for consult GI: Lower GI bleeding. Operations or Procedures PROCEDURE(s): ABPLIV - CT AB PEL WITH IV CON ONLY REASON: Rectal bleeding ORDER NUMBER(s): [id number], ACCESSION NUMBER(s): [id number] EXAM: CT CT AB PEL WITH IV CON ONLY History: Rectal bleeding COMPARISON: CT CT AB PEL WITH IV CON ONLY on DOS: 04/21/24, CT CT AB PEL WITH IV CON ONLY on DOS: 01/11/24 TECHNIQUE: Multidetector spiral CT of the abdomen and pelvis was performed from lung bases to pubic symphysis. Intravenous contrast was administered during this examination. Portal venous imaging was obtained. Axial, coronal and sagittal multiplanar reformats were performed by the technologist on a separate workstation. Radiation Dose: 1. Abdomen/Pelvis: CTDIvol 18.39mGy, DLP 1179.36 mGy*cm. CONTRAST: Type of contrast: Omnipaque 300 Contrast injected: 100 ml FINDINGS: Lung Bases: No acute or significant lung base finding. Normal heart size. No pleural or pericardial effusion. Liver: Hepatic steatosis. Gallbladder and Biliary Tree: Unremarkable Spleen: Unremarkable Pancreas: The pancreas is normal in appearance without focal lesions or abnormal enhancement. Adrenal Glands: Unremarkable Kidneys: No hydronephrosis. Bladder: Unremarkable Bowel: Focal area of short segmental wall thickening at the proximal to mid sigmoid colon. Few diverticula in this region. Equivocal surrounding inflammatory changes adjacent to one of the diverticula. Ascites: Absent Lymphadenopathy: No mesenteric, retroperitoneal or periportal lymphadenopathy. Abdominal Wall and Mesentery: Unremarkable. Vasculature: The visualized abdominal aorta is normal in size and caliber. Abdominal and pelvic vessels demonstrate normal enhancement. Pelvic Organs: Unremarkable Musculoskeletal: No aggressive focal bony lesions, acute fractures or dislocation. IMPRESSION: Focal area of colonic wall thickening at the mid to distal sigmoid colon which could be related to chronic diverticulosis +/minus sign acute diverticulitis. Consider colonoscopy when the acute illness has subsided to exclude any underlying lesion. PROCEDURE(s): GBUS - GALLBLADDER REASON: elevated t bili ORDER NUMBER(s): [id number], ACCESSION NUMBER(s): [id number] INDICATION: elevated t bili TECHNIQUE: Multiple real-time sonographic images of the abdomen were obtained. COMPARISON: None FINDINGS: Parenchymal changes consistent with steatosis The liver measures 16.5 cm. No intrahepatic biliary ductal dilatation is noted. The gallbladder wall measures 0.16 cm and is unremarkable. No gallstones or sludge is seen. The common duct not visible No pericholecystic fluid is noted. The right kidney measures 11.7 cm. No hydronephrosis. The pancreas is not well visualized due to obscuration from bowel gas. The visualized portions of the IVC and aorta are grossly unremarkable. IMPRESSION: 1. Liver measures 16.5 cm in length with changes suggesting steatosis. 2. Gallbladder wall measures 0.16 cm 3. Negative sonographic Ogden's sign 4. Right kidney measures 11.7 cm in length with no nephrolithiasis or hydronephrosis ATED BY: CARLOTTA HASSAN Jr. DO DICTATED DATE/TIME: 05/19/25 1340 Condition at Discharge: Stable Final Diagnosis/Problems List Acute Lower GI bleeding possible due to hemorroids Chronic Diverticulosis, possible acute diverticulitis Chronic hemorroids Hypertensive Urgency Chronic constipation Obesity BMI 29.8 Discharge Disposition: Home SNF Discharge Will this Physician continue t: No Discharge Instruct/Medications Diet: See Comment Diet comment: Full liquid diet for 1 week Activity: No Restrictions, As Tolerated Follow Up/Referral: F/u with D/C clinic in within 1 week F/U with PCP in 1 week F/U with GI Dr. Stockton in 1 week for out patient colonoscopy Medications: Docusate 100mg po prn for constipation Augmenting 500mg po bid x 5 days. Continue BP medications BP log Scheduled Amoxicillin & Pot Clavulanate (Augmentin Tablet), 875 MG PO BID Amoxicillin & Pot Clavulanate (Augmentin Tablet), 875 MG PO BID Ciprofloxacin Hcl (Cipro), 500 MG PO BID Enalapril Maleate (Enalapril Maleate), 1 TAB PO BID, (Reported) Metronidazole (Flagyl), 1 TAB PO BID Scheduled PRN Docusate Sodium (Docusate Sodium), 100 MG PO BIDPRN PRN Discharge Statement: "Patient was advised to return to the ER or call 911 if any headaches, dizziness, shortness of breath, chest pain, abdominal pain, bleeding, fevers, or worsening of medical condition. Patient was counseled about treatment plan, medications, possible side effects, patientverbalized understanding. All questions were answered to the best of my ability. This discharge took greater then 30 minutes in planning, reviewing documentation, counseling the patient, and discussing with other team members." ASSESSMENT ASSESSMENT Assessment Lower GI bleeding possible due to hemorroids Chronic hemorroids Hypertensive Urgency Chronic Diverticulosis Chronic constipation Obesity BMI 29.8 Diet Cardiac diet Code status: full code Patient's status and plan discussed with the patient >30min. The patient agrees with the discharge plan. Case discussed with Dr. Jimenez Visit Coding STANDARD RES Billing Provider: CHRISTA MCGILL MD Date of Service if different f: May 19, 2025 Common Visit Codes: 29612-DZX/OBS DISCH DAY >30min MOLLY FIGUEROA RESIDENT May 19, 2025 14:50
[2025-05-19] MEDS ORDERED: hydrALAZINE HCL 20 MG/ML VL IV ONE (15:00)
[2025-05-19] MEDS: hydrALAZINE HCL 20 MG/ML VL IV ONE (15:35)
[2025-05-19 16:37] LABS: COVID19 ANTIGEN SOFIA FIA NEGATIVE (NEGATIVE)
== END 2025-05-19 18:14 | disposition home or self-care (01) | DRG 254 ==
LOC: ER 21:27 → UNDOADMIN 05-19 02:20 → OVERFLOW 05-19 02:20 → TELE-WESTW 05-19 04:40 → WEST WING 05-19 10:08
PROVIDERS: ADMIT Student in an Organized Health Care Education/Training Program; ATTEND Student in an Organized Health Care Education/Training Program
DX: K64.9 Unspecified hemorrhoids (principal); I16.0 Hypertensive urgency; K57.32 Diverticulitis of large intestine without perforation or abscess without bleeding; E66.9 Obesity, unspecified; I10 Essential (primary) hypertension; K59.09 Other constipation; Z68.29 Body mass index [BMI] 29.0-29.9, adult
CPT/HCPCS: 36415; 74177; 76705; 80053; 80307; 81001; 82270; 82306; 82607; 83036; 83605; 83735; 84443; 85025; 85610; 85652; 85730; 86141; 87426; 87804; 96360; 96361; G0378; J1956; J2470; J3490